=== PATIENT | female | born 1950 | race Caucasian/White ===

== ENCOUNTER 2021-11-07 08:03 | Day surgery (SDC) | payer MEDICARE, OTHER ==
[~2021-11-07] VITALS: Ht 172.7 cm; Wt 66.8 kg
[~2021-11-07 08:03] MED LIST: CHOL10002 PO; GLUCOSAMINE &1 EACH PO; GLYCAS PR; NAPR220 PO; VENL75ER PO; VERA120ERB PO
== END 2021-11-07 09:47 | disposition home or self-care (01) ==
LOC: ORSCSDS 08:03
PROVIDERS: Internal Medicine Gastroenterology
PROC: 0DJD8ZZ Inspection of Lower Intestinal Tract, Via Natural or Artificial Opening Endoscopic (ICD-10-PCS; principal; 2021-11-07 09:00)
DX: Z12.11 Encounter for screening for malignant neoplasm of colon (principal); Z86.010 Personal history of colon polyps; Z80.0 Family history of malignant neoplasm of digestive organs; K57.30 Diverticulosis of large intestine without perforation or abscess without bleeding; I10 Essential (primary) hypertension; Z79.899 Other long term (current) drug therapy
CPT/HCPCS: J2704; J7120

== ENCOUNTER 2023-03-01 18:02 | Emergency (ER) | payer MEDICARE, OTHER ==
[~2023-03-01] VITALS: Ht 172.7 cm; Wt 71.2 kg
[2023-03-01 19:53] VITALS: BP 155/64
[2023-03-01 20:57] LABS: BASOPHILS ABSOLUTE AUTO 0.03 K/mm3 (0.00-0.23); BASOPHILS PERCENT AUTO 0 % (0-2); EOSINOPHILS ABSOLUTE AUTO 0.01 K/mm3 (0.00-0.68); EOSINOPHILS PERCENT AUTO 0 % (0-6); Hematocrit 38.1 % (33.0-51.0); Hemoglobin 12.8 g/dL (11.5-16.0); IMMATURE GRAN ABSOLUTE AUTO 0.03 K/mm3 (0.00-0.10); IMMATURE GRAN PERCENT AUTO 0 % (0-1); LYMPHOCYTES ABSOLUTE AUTO 1.21 K/mm3 (0.84-5.20); LYMPHOCYTES PERCENT AUTO 11 % (21-46); MONOCYTES ABSOLUTE AUTO 0.62 K/mm3 (0.16-1.47); MONOCYTES PERCENT AUTO 6 % (4-13); Mean Corpuscular HGB 32.5 pg (26.0-34.0); Mean Corpuscular HGB Conc 33.6 g/dL (31.5-36.5); Mean Corpuscular Volume 97 fL (80-100); Mean Platelet Volume 11.2 fL (9.1-12.4); NEUTROPHILS ABSOLUTE AUTO 8.95 K/mm3 (1.96-9.15); NEUTROPHILS PERCENT AUTO 82 % (41-73); Platelet Count 194 K/mm3 (150-400); RDW Coefficient Variation 11.6 % (11.7-14.2); RDW Standard Deviation 41.2 fL (35.1-46.3); Red Blood Cell Count 3.94 M/mm3 (3.80-5.20); White Blood Cell Count 10.85 K/mm3 (4.00-11.30)
[2023-03-01 21:21] LABS: Albumin, Blood 3.7 g/dL (3.4-5.0); Albumin/Globulin Ratio 1.2 (0.8-1.8); Bilirubin, Total 0.6 mg/dL (0.1-1.0); Bun/Creatinine Ratio 30.3 (12.0-20.0); Calcium, Blood 8.7 mg/dL (8.5-10.1); Creatinine, Blood 0.66 mg/dL (0.40-1.00); Globulin, Blood 3.1 g/dL (2.2-4.0); Potassium, Blood 3.6 mmol/L (3.5-5.5); Total Protein, Blood 6.8 g/dL (6.4-8.2)
[2023-03-01] MEDS ORDERED: CEPH500 PO (21:42)
[2023-03-01] MEDS ORDERED: SULTRIDS PO (21:42)
== END 2023-03-01 21:44 | disposition home or self-care (01) ==
LOC: ER 18:02
PROVIDERS: Student in an Organized Health Care Education/Training Program
DX: H60.11 Cellulitis of right external ear (principal); Z88.5 Allergy status to narcotic agent; Z79.899 Other long term (current) drug therapy; I10 Essential (primary) hypertension
CPT/HCPCS: 80053; 85025; 99283; A9270

== ENCOUNTER 2024-01-24 07:49 | Day surgery (SDC) | payer MEDICARE, OTHER ==
[~2024-01-24] VITALS: Ht 172.7 cm; Wt 69.8 kg
[~2024-01-24 07:49] MED LIST changes: +Balanced Salt Epinephrine Irrigation Solution 500 mL IR SCH; +CEPH500 PO; +Lidocaine HCl/Pf 1% 5 ML VIAL XX SCH; +Moxifloxacin HCL 0.5 MG/0.1 ML 0.4MLSYR LEFTEYE SCH; +NS 500 ML IV ONE; +OMEP20ER PO; +PHENYLEPHRINE\\TROPICAMIDE\\TETRACAINE OPHTHALMIC DILATING SOLN LEFTEYE PRN; +Povidone-Iodine 450 DROP/30 ML Solution LEFTEYE SCH; +Povidone-Iodine 450 DROP/30 ML Solution ONE; +SULTRIDS PO; +Triamcinolone Inj Susp 40 MG / ML 1ML Vial INJ SCH; +Triamcinolone Inj Susp 40 MG / ML 1ML Vial ONE; +VERA180ERB PO
[2024-01-24] MEDS ORDERED: NS 1,000 ML IV ONE ×2 (08:23)
[2024-01-24] MEDS ORDERED: Midazolam HCl 1MG / ML 2ML Vial ONE (08:54)
[2024-01-24] MEDS ORDERED: FentaNYL Citrate 50 MCG/ML 2 ML Injection ONE (08:54)
[2024-01-24] MEDS ORDERED: Tetracaine HCl 0.5% Opth Soln 15 ml LEFTEYE ONE (09:05)
[2024-01-24 09:34] VITALS: BP 140/81
== END 2024-01-24 09:49 | disposition home or self-care (01) ==
LOC: ORSCSDS 07:49
PROVIDERS: Ophthalmology
PROC: 08RK3JZ Replacement of Left Lens with Synthetic Substitute, Percutaneous Approach (ICD-10-PCS; principal; 2024-01-24 09:00)
DX: H25.12 Age-related nuclear cataract, left eye (principal); Z96.1 Presence of intraocular lens; I10 Essential (primary) hypertension; K21.9 Gastro-esophageal reflux disease without esophagitis; Z79.899 Other long term (current) drug therapy
CPT/HCPCS: J2250; J3010; J3301; J7040; V2632